=== PATIENT | male | born 1970 | race Caucasian/White ===

== ENCOUNTER → 2017-12-03 08:53 | Outpatient (CLI) | payer OTHER, SELFPAY ==
[2017-12-03 10:20] LABS: Erythrocyte Sedimentation Rate 11 mm/hr (0-15)
[2017-12-03 10:45] LABS: ALB/GLOB Ratio 0.9 RATIO (0.9-2.4); AST(SGOT) 29 U/L (15-37); Alanine Aminotransfer ALT/SGPT 55 U/L (16-61); Albumin, Serum 3.7 g/dL (3.2-5.0); Alkaline Phosphatase 72 U/L (45-117); Anion Gap 11 (5-15); BUN 17 mg/dL (7-18); BUN/Creat Ratio 16.2 RATIO (10-20); Calcium,Total 9.1 mg/dL (8.5-10.1); Chloride 100 mmol/L (98-107); Creatinine, Serum 1.05 mg/dL (0.70-1.30); EST Glomerular Filtration Rate 81 mL/min (>60); Est Glom Filt Rate - Afr Amer 98 mL/min (>60); Globulin 4.3 g/dL (2.2-4.2); Glucose 354 mg/dL (74-106); Potassium 4.1 mmol/L (3.5-5.1); Rheumatoid Factor < 10.0 IU/mL (<15); Sodium Level 136 mmol/L (136-145)
[2017-12-03 11:01] LABS: Hemoglobin A1c 12.8 % (4.2-6.3)
[2017-12-03 11:21] LABS: HIV - WCH Non-Reactive (Nonreactive); Vitamin B12 827 pg/mL (211-911)
[2017-12-07 13:57] LABS: Thyroid Stim Hormone (TSH) 0.73 uIU/mL (0.358-3.74)
[2017-12-07 16:07] LABS: Immunoglobulin A 286 mg/dL (90-386); Immunoglobulin G 1103 mg/dL (700-1600); Immunoglobulin M 163 mg/dL (20-172); RNP Ab <0.2 AI (0.0-0.9); Smith Ab <0.2 AI (0.0-0.9)
[2017-12-08 16:12] LABS: PROEL- A/G Ratio 1.1 (0.7-1.7); PROEL- Albumin 3.9 g/dL (2.9-4.4); PROEL- Alpha-1 Globulin 0.2 g/dL (0.0-0.4); PROEL- Alpha-2 Globulin 0.9 g/dL (0.4-1.0); PROEL- Beta Globulin 1.3 g/dL (0.7-1.3); PROEL- Gamma Globulin 1.4 g/dL (0.4-1.8); PROEL- Globulin, Total 3.7 g/dL (2.2-3.9); PROEL- TOTAL PROTEIN 7.6 g/dL (6.0-8.5)
[2017-12-09 10:43] LABS: Hep C Antibodies <0.1 s/co ratio (0.0-0.9)
[2017-12-09 10:46] LABS: ANTINUCLEAR ANTIBODIES DIRECT Negative (Negative)
== END ==
PROVIDERS: Family Provider Family Medicine; PCP Family Medicine; Visit Provider Family Medicine
DX: E11.40 Type 2 diabetes mellitus with diabetic neuropathy, unspecified (principal); E11.65 Type 2 diabetes mellitus with hyperglycemia; M79.609 Pain in unspecified limb; R20.2 Paresthesia of skin
CPT/HCPCS: 36415; 80053; 82607; 82746; 82784; 83036; 84165; 84443; 85652; 86038; 86235; 86334; 86431; 86703; 86803

== ENCOUNTER → 2018-08-25 09:16 | Outpatient (CLI) | payer OTHER, SELFPAY ==
[2018-08-25 10:03] LABS: Absolute Lymphocyte Count 1.49 X10^3/ul (0.83-4.51); Absolute Neutrophil Count 7.1 X10^3/uL (2.0-7.7); Basophil# 0.04 X10^3/uL; Basophil% 0.4 % (0-1); Eosinophil# 0.28 X10^3/uL; Eosinophils% 2.9 % (0-5); Hematocrit 51.9 % (40-54); Hemoglobin 18.1 g/dl (13.0-16.5); Lymphocyte # 1.49 X10^3/ul (4.0); Lymphocyte % 15.5 % (19-41); Mean Corp Hgb Conc 34.9 g/gl (32-36); Mean Corpuscular Hgb 31.1 pg (27.0-32.0); Mean Corpuscular Volume 89.2 fL (80-94); Mean Platelet Vol. 11.1 fl (6.2-12.0); Monocyte# 0.61 X10^3/uL; Monocyte% 6.3 % (0-10); Neutrophil # 7.13 X10^3/uL (2.7-7.7); Neutrophil % 74.2 % (47-70); Platelet Count 251 K/mm3 (150-450); RBC Distribution Width CV 12.8 % (11.6-14.6); RBC Distribution Width SD 41.8 fl (35.1-43.9); Red Blood Count 5.82 M/mm3 (4.6-6.2); White Blood Count 9.6 K/mm3 (4.4-11.0)
[2018-08-25 10:05] LABS: POSITIVE COUNT NO; POSITIVE DIFFERENTIAL NO; POSITIVE MORPHOLOGY NO
[2018-08-25 10:25] LABS: Vitamin B12 1101 pg/mL (211-911)
[2018-08-25 10:30] LABS: Hemoglobin A1c 10.9 % (4.2-6.3)
[2018-08-25 10:36] LABS: Microalbumin,Random Urine 14.1 mg/L (NO RANGE EST.); Microalbumin:Creatinine Ratio 42.7 mg/g CRE (<30 mg/g CRE)
[2018-08-25 11:11] LABS: ALB/GLOB Ratio 0.9 RATIO (0.9-2.4); AST(SGOT) 15 U/L (15-37); Alanine Aminotransfer ALT/SGPT 33 U/L (16-61); Albumin, Serum 4.1 g/dL (3.2-5.0); Alkaline Phosphatase 90 U/L (45-117); Anion Gap 12 (5-15); BUN 15 mg/dL (7-18); BUN/Creat Ratio 15.2 RATIO (10-20); Calcium,Total 10.2 mg/dL (8.5-10.1); Chloride 99 mmol/L (98-107); Cholesterol 292 mg/dL (200); Creatinine, Serum 0.98 mg/dL (0.70-1.30); EST Glomerular Filtration Rate 87 mL/min (>60); Est Glom Filt Rate - Afr Amer 105 mL/min (>60); Ferritin 183 ng/mL (26-388); Globulin 4.7 g/dL (2.2-4.2); Glucose 329 mg/dL (74-106); High Density Lipoprotein 51 mg/dL; Potassium 4.2 mmol/L (3.5-5.1); Protein, Total 8.8 g/dL (6.4-8.2); Sodium Level 137 mmol/L (136-145); Thyroid Stim Hormone (TSH) 0.72 uIU/mL (0.358-3.74); Triglycerides 343 mg/dL; Very Low Density Lipoprotein 69 mg/dL (5-40)
== END ==
PROVIDERS: Family Provider Family Medicine; PCP Family Medicine; Visit Provider Family Medicine
DX: E11.9 Type 2 diabetes mellitus without complications (principal); R63.4 Abnormal weight loss
CPT/HCPCS: 36415; 80053; 80061; 82043; 82140; 82570; 82607; 82728; 82746; 83036; 84443; 85025

== ENCOUNTER → 2018-09-26 15:29 | Outpatient (CLI) | payer OTHER, SELFPAY ==
[2018-09-26 17:29] LABS: Absolute Lymphocyte Count 2.06 X10^3/ul (0.83-4.51); Absolute Neutrophil Count 7.4 X10^3/uL (2.0-7.7); Basophil# 0.03 X10^3/uL; Basophil% 0.3 % (0-1); Eosinophil# 0.18 X10^3/uL; Eosinophils% 1.7 % (0-5); Hematocrit 47.3 % (40-54); Hemoglobin 16.1 g/dl (13.0-16.5); Lymphocyte # 2.06 X10^3/ul (4.0); Lymphocyte % 19.8 % (19-41); Mean Corpuscular Hgb 31.3 pg (27.0-32.0); Mean Corpuscular Volume 91.8 fL (80-94); Mean Platelet Vol. 10.9 fl (6.2-12.0); Monocyte# 0.61 X10^3/uL; Monocyte% 5.9 % (0-10); Neutrophil # 7.42 X10^3/uL (2.7-7.7); Neutrophil % 71.4 % (47-70); Platelet Count 247 K/mm3 (150-450); Red Blood Count 5.15 M/mm3 (4.6-6.2); White Blood Count 10.4 K/mm3 (4.4-11.0)
[2018-09-26 17:30] LABS: POSITIVE COUNT NO; POSITIVE DIFFERENTIAL NO; POSITIVE MORPHOLOGY NO
[2018-09-26 18:11] LABS: AST(SGOT) 15 U/L (15-37); Alanine Aminotransfer ALT/SGPT 27 U/L (16-61); Albumin, Serum 4.1 g/dL (3.2-5.0); Alkaline Phosphatase 71 U/L (45-117); Anion Gap 10 (5-15); BUN 15 mg/dL (7-18); BUN/Creat Ratio 17.6 RATIO (10-20); Calcium,Total 9.8 mg/dL (8.5-10.1); Chloride 96 mmol/L (98-107); Cholesterol 284 mg/dL (200); Creatinine, Serum 0.85 mg/dL (0.70-1.30); EST Glomerular Filtration Rate 102 mL/min (>60); Est Glom Filt Rate - Afr Amer 124 mL/min (>60); Globulin 4.3 g/dL (2.2-4.2); Glucose 233 mg/dL (74-106); Hemoglobin A1c 9.9 % (4.2-6.3); High Density Lipoprotein 57 mg/dL; Potassium 3.7 mmol/L (3.5-5.1); Protein, Total 8.4 g/dL (6.4-8.2); Sodium Level 134 mmol/L (136-145); Triglycerides 424 mg/dL
== END ==
PROVIDERS: Family Provider Family Medicine; PCP Family Medicine; Referring Provider Family Medicine; Visit Provider Family Medicine
DX: E11.65 Type 2 diabetes mellitus with hyperglycemia (principal); D75.1 Secondary polycythemia
CPT/HCPCS: 36415; 80053; 80061; 83036; 85025

== ENCOUNTER → 2019-11-08 14:22 | Outpatient (CLI) | payer OTHER, SELFPAY ==
--- NOTE | 2019-11-08 14:27 | RAD_ITS ---
STUDY: X-RAY - LEFT SHOULDER REASON FOR EXAM: Male, 49 years old. Fell off a ladder 2 days ago TECHNIQUE: 4 view(s) of the shoulder. COMPARISON: None. FINDINGS: Normal glenohumeral articulation. Normal acromioclavicular joint. Normal acromion. Normal humeral head and visualized proximal humerus. The soft tissue structures are unremarkable. Normal visualized pulmonary apex. RAD/Shoulder min 2 Views IMPRESSION: Normal x-ray examination of the shoulder. Electronically Signed: Jasmeet Marcelo, at 15:30 EDT , Service support ,
--- NOTE | 2019-11-08 14:30 | RAD_ITS ---
STUDY: X-RAY - LEFT SCAPULA REASON FOR EXAM: Male, 49 years old. Fell off a ladder 2 days ago TECHNIQUE: 2 view(s) of the scapula were obtained. COMPARISON: None. FINDINGS: Normal scapula, including the osseous glenoid rim, acromion, scapular neck, spine, coracoid process, and visualized body. Normal glenohumeral articulation. Normal acromioclavicular joint. Normal visualized humeral head. Normal visualized pulmonary apex. RAD/Scapula IMPRESSION: Normal plain film x-ray examination of the scapula. Electronically Signed: Jasmeet Marcelo, at 15:31 EDT , Service support ,
[2019-11-08 18:52] LABS: ALB/GLOB Ratio 0.9 RATIO (0.9-2.4); AST(SGOT) 14 U/L (15-37); Alanine Aminotransfer ALT/SGPT 29 U/L (16-61); Albumin, Serum 4.1 g/dL (3.2-5.0); Alkaline Phosphatase 112 U/L (45-117); Anion Gap 10 (5-15); BUN 9 mg/dL (7-18); BUN/Creat Ratio 9.9 RATIO (10-20); Calcium,Total 9.6 mg/dL (8.5-10.1); Chloride 99 mmol/L (98-107); EST Glomerular Filtration Rate 95 mL/min (>60); Est Glom Filt Rate - Afr Amer 115 mL/min (>60); Globulin 4.5 g/dL (2.2-4.2); Glucose 326 mg/dL (74-106); Potassium 3.4 mmol/L (3.5-5.1); Protein, Total 8.6 g/dL (6.4-8.2); Sodium Level 132 mmol/L (136-145)
== END ==
PROVIDERS: PCP Family Medicine; Referring Provider Family Medicine; Visit Provider Family Medicine
DX: S49.92XA Unspecified injury of left shoulder and upper arm, initial encounter (principal); E11.65 Type 2 diabetes mellitus with hyperglycemia
CPT/HCPCS: 36415; 73010; 73030; 80053

== ENCOUNTER 2020-03-05 12:40 | Outpatient (RCR) | payer OTHER, SELFPAY ==
[2020-02-22 10:12] VITALS: BMI 28.5
--- NOTE | 2020-03-08 10:23 | HP.FCE ---
Floor (Occasional 1-33% of Day): 35# Floor (Frequent 34-66% of Day): 18# Floor (Constant 67-100% of Day): 7# Floor PDL: Light-Medium Knee (Occasional 1-33% of Day): 35# Knee (Frequent 34-66% of Day): 18# Knee (Constant 67-100% of Day): 7# Knee PDL: Light-Medium Waist (Occasional 1-33% of Day): 25# Waist (Frequent 34-66% of Day): 12# Waist (Constant 67-100% of Day): NA Waist PDL: Light Shoulder (Occasional 1-33% of Day): 25# Shoulder (Frequent 34-66% of Day): 12# Shoulder (Constant 67-100% of Day): NA Shoulder PDL: Light Overhead (Occasional 1-33% of Day): 10# Overhead (Frequent 34-66% of Day): NA Overhead (Constant 67-100% of Day): NA Overhead PDL: Sedentary Bending: Occasional Ability (1-33% of day) Comments: low occasional ability Squatting: Occasional Ability (1-33% of day) Kneeling: No Ablility (0% of day) Reaching out: Occasional Ability (1-33% of day) Reaching up: Occasional Ability (1-33% of day) Sitting: Frequent Ability (34-66% of day) Walking: Occasional Ability (1-33% of day) Standing: Occasional Ability (1-33% of day) Comments: low occasional ability Duration Sedentary Sedentary Light Light Light Medium Medium Medium Heavy Very Heavy Heavy Occasional (0-33% of day) Frequent (34-66% of day) Constant (67-100% of day) 10 # Negligible Negligible 15 # 8 # Negligible 20 # 10# Negli. 35 # 18 # 7 # 50 # 25 # 10 # 75 # 100 # >100 # 38 # 50 # >50 # 15 # 20 # >20 # Height: 1.73 m Weight:: 90.718 kg Hand Dominance: Left Medical History Including Restrictions: Pt states he was in good health until he had a fall ten years ago. Pt states he suffered a fall and states he moved his spine forward on his pelvic bone- which required a fussion of the spine of L4-L5 ( pt not sure). Pt states he continued to have back pain and was dx with [facility] syndrome ten years ago as well. Pt states 5 years ago he had a disc herniation at level C6 with spine fussion of C6 and C7. pt went through physical therapy. Pt states he was placed on a lifting restirction 10 years ago at 50# Diagnoses: High blood pressure dx at age 15 controlled with medication. DMII dx in 2002. neropaathy in hands and feet dx in 2018. [facility] syndrom. pt states he is on arthritis mediation perscribed by his family . Symptoms: tingling in feet. cold feet. pain in feet. right leg pain. Pain in right groin. Limited ROM Pain: pain currently 03/21 pt does not take pain medication- states he has been on a number of pain medications but wasn?t helpful. Work History: Pt states the last time he worked was September of 2018. States he worked at [employer] in [facility], [place]. 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 Pt states he was employed three years. Pt states he was required to load/ unload car parts, detailing cars, assembling and disassembling vehicles. pt states he worked 12-hour days 5 days a week. Pt states he worked at a [employer] from [phone] Behavioral: Pt was cooperative during the assessment. ADLS: Pt states he lives in a two-story home with two entry steps. states he lives with his and son (15). pt states master bedroom upstairs a full flight of 12 stairs. Pt states he sleeps on the couch. Bathroom is on main floor with tub shower combination. pt states he is ind. with bathing. States with dressing he is modified independence. due to limited UB ROM. Pt states he drives ind. pt states he does the cooking clean and laundry. Laundry is first floor set-up. Pt states son does the yard work. pt states both him and his do the grocery shopping. Physical Examination: resting heart rate 89. pt demo with a rolled shoulder forward head posture ROM: pt demo with left shoulder flex at 80* all other left UE ROM is WNL. (with repetitive reaching up pt demonstrated a increase in left UE ROM to 140*). right UE ROM is WFL. forward lumbar flexion limited to 45*. pt demo with compensatory techniques of back extension. Extension of spine limited (pt pull neck into extension, and bends knees demo little lumbar extension) Strength: Pt demo left UE shoulder at 4-/5 in his limited shoulder ROM. left UE biceps/triceps 4+/5. right UE grossly throughout 4+/5. LE hip flexors tested MMT at 4/5. bilateral quad and hamstring MMT 4+/5 Right [employer] Strength Average: 88.33 Right [employer] Strength Percentile: 10% Left [employer] Strength Average: 60.00 Left [employer] Strength Percentile: 1.4% Right Lateral Pinch Average: 20.66 Right Lateral Pinch Percentile: 50% Left Lateral Pinch Average: 14.00 Left Lateral Pinch Percentile: 10% Right Tripod Pinch Average: 21.33 Right Tripod Pinch Percentile: 75% Left Tripod Pinch Average: 20.00 Left Tripod Pinch Percentile: 75% Sensation: [place] [employer] sensory testing. right hand 2.83. left hand 2.83 all but left LF at 3.22. sensation is WNL Fine Motor: denies issues Balance: no loss of balance noted at this time Bending: pt demo the ability to bend forward in limited forward flexion three times with use of external upport, ten times and heart rate 125 and ten tiems fast heart rate 127 pt can bend forward on low occasional ability Squatting: pt demo the ability to squat with limited MENDEZ and reports pain up his spine and right leg- reports leg pain at 9/10 pt complted 10 times with heart rate at 113. pt unable to cont with ten times fast due to pain 9//10 - pt can squat on a occasional ability Kneeling: pt demo the ability to kneel one time with external support - pt states pain in back and leg. pt has not ability to kneel Reaching out/up: pt states with reaching out three times he has pain going down center of his back and shoulders, ten times with heart rate at 106 following, ten times rapidly with heart rate at 99 pt reported pain 9.5/10 pt can reach forward on an occasional ability. pt demo the ability to reach up three times and ten times and then times rapidly with heart rate at 110 pt demo increase in left shoulder flex with this task at 145* equal to right (but still limited reaching up ROM from norms at 160*). pt can reach up/out on occasional ability Walking: Pt demo the ability to ambulate 468 feet total distance while in the clinic. pt amb with slow antalgic gait. pt report pain 9.5/10. pt can ambulate on occasional ability Standing: pt demo the ability to stand for 3 min shifting body weight, pt can stand on low occasional ability Sitting: pt demo the ability to sit for 40 min with no apparent or expressed discomfort pt can sit on a frequent ability. Climbing Stairs: pt demo the ability to ascend/descend ten stairs at a reciprocal step pattern with use of rail. Floor Lift: PT demo the ability to lift 35# maximally from this level. Knee Lift: PT demo the ability to lift 35# maximally from this level. Waist Lift: PT demo the ability to lift 25# maximally from this level. Shoulder Lift: PT demo the ability to lift 25# maximally from this level. Overhead Lift: PT demo the ability to lift 10# maximally from this level. Carrying: pt demo the ability to carry 25# for 60 feet with antalgic gait pattern Comments: heart rate following lift and carry 112. pain limiting factor with requested tasks
--- NOTE | 2020-04-18 12:48 | HP.OT.NRP ---
MARIEL CASTAÑEDA was seen in my office for initial evaluation on . The following Plan of Care was established for this patient: This patient was last seen in our office 03/05/20. Pertinent comments regarding their Occupational therapy will appear below: pt seen for FCE only At this point I will be discontinuing this patient from occupational therapy. I would be happy to see this patient again in the future if found appropriate by the physician. Thank you! Narda Sebastian, OTR/L, CHT
== END 2020-03-05 19:00 | disposition home or self-care (01) ==
LOC: OT 12:40
PROVIDERS: PCP Family Medicine; Referring Provider Family Medicine; Visit Provider Family Medicine
DX: M48.10 Ankylosing hyperostosis [Forestier], site unspecified (principal); M54.9 Dorsalgia, unspecified; G89.29 Other chronic pain; M79.604 Pain in right leg
CPT/HCPCS: 97750

== ENCOUNTER → 2020-12-17 10:04 | Outpatient (CLI) | payer OTHER, SELFPAY ==
[2020-10-25 09:26] VITALS: BMI 33.2
[2020-12-17 12:32] LABS: ALB/GLOB Ratio 0.9 RATIO (0.9-2.4); AST(SGOT) 15 U/L (15-37); Alanine Aminotransfer ALT/SGPT 23 U/L (16-61); Albumin, Serum 3.6 g/dL (3.2-5.0); Alkaline Phosphatase 76 U/L (45-117); Anion Gap 9 (5-15); BUN 9 mg/dL (7-18); BUN/Creat Ratio 9.6 RATIO (10-20); Calcium,Total 9.3 mg/dL (8.5-10.1); Chloride 102 mmol/L (98-107); Creatinine, Serum 0.94 mg/dL (0.70-1.30); EST Glomerular Filtration Rate 91 mL/min (>60); Est Glom Filt Rate - Afr Amer 110 mL/min (>60); Globulin 4.1 g/dL (2.2-4.2); Glucose 263 mg/dL (74-106); Potassium 4.1 mmol/L (3.5-5.1); Protein, Total 7.7 g/dL (6.4-8.2); Sodium Level 135 mmol/L (136-145); Thyroid Stim Hormone (TSH) 1.48 uIU/mL (0.358-3.74)
[2020-12-17 12:33] LABS: Hemoglobin A1c 8.8 % (3.8-5.6)
[2020-12-17 12:39] LABS: Microalbumin,Random Urine 23.3 mg/L (NO RANGE EST.); Microalbumin:Creatinine Ratio 20.4 mg/g CRE (<30 mg/g CRE)
== END ==
PROVIDERS: PCP Family Medicine; Visit Provider Family Medicine
DX: E11.65 Type 2 diabetes mellitus with hyperglycemia (principal); I10 Essential (primary) hypertension
CPT/HCPCS: 36415; 80053; 82043; 82570; 83036; 84443

== ENCOUNTER 2021-01-29 19:22 | Emergency (ER) | payer OTHER, SELFPAY ==
[2020-10-25 09:26] VITALS: BMI 33.2
[2021-01-29 19:22] VITALS: BP 148/96; PULSE 81; RESP 16; TEMP 36.7; O2SAT 98; BMI 31.5
[2021-01-29 20:29] LABS: Absolute Lymphocyte Count 2.12 X10^3/uL (0.83-4.51); Absolute Neutrophil Count 6.7 X10^3/uL (2.0-7.7); Basophil# 0.03 X10^3/uL; Basophil% 0.3 % (0-1); Eosinophil# 0.11 X10^3/uL; Eosinophils% 1.1 % (0-5); Hematocrit 49.3 % (40-54); Hemoglobin 17.1 g/dL (13.0-16.5); Lymphocyte # 2.12 X10^3/ul (0.83-4.51); Lymphocyte % 21.9 % (19-41); Mean Corp Hgb Conc 34.7 g/dL (32-36); Mean Corpuscular Hgb 30.5 pg (27.0-32.0); Mean Corpuscular Volume 87.9 fL (80-94); Mean Platelet Vol. 10.6 fl (6.2-12.0); Monocyte# 0.68 X10^3/uL; NRBC Flagged by Analyzer 0 % (0-5); Neutrophil # 6.68 X10^3/uL (2.7-7.7); Neutrophil % 69.1 % (47-70); Platelet Count 302 K/mm3 (150-450); RBC Distribution Width CV 12.7 % (11.6-14.6); Red Blood Count 5.61 M/mm3 (4.6-6.2); White Blood Count 9.7 K/mm3 (4.4-11.0)
[2021-01-29 20:41] LABS: Anion Gap 8 (5-15); BUN 9 mg/dL (7-18); Calcium,Total 9.3 mg/dL (8.5-10.1); Chloride 105 mmol/L (98-107); Creatinine, Serum 1.13 mg/dL (0.70-1.30); EST Glomerular Filtration Rate 73 mL/min (>60); Est Glom Filt Rate - Afr Amer 89 mL/min (>60); Estimated Creatinine Clearance 85.15 ml/min; Glucose 317 mg/dL (74-106); Potassium 3.4 mmol/L (3.5-5.1); Sodium Level 135 mmol/L (136-145)
[2021-01-29 21:04] LABS: Red Blood Cells-Urine 0 SEEN /hpf (0-5); Squamous Epithelial Cells - UA 0 SEEN /hpf (0-5); White Blood Cells 0 SEEN /hpf (0-5)
[2021-01-29 21:08] LABS: Color, Urine Yellow (Yellow); Glucose, Dipstick 1000 mg/dl (Normal); Ketone-Dipstick 5 mg/dl (Negative); Leukocyte Esterase-Dipstick Negative /ul (Negative); Nitrite-Dipstick Negative (Negative); Occult Blood-Urine Negative /ul (Negative); Protein-Dipstick Negative (Negative); Specific Gravity, Urine 1.015 (1.002-1.030); Urine Bilirubin Dipstick Negative (Negative); Urine Clarity Clear (Clear); Urine Urobilinogen 4 mg/dl (Normal)
[2021-01-29 21:23] LABS: Bacteria RARE /hpf (None Seen); Mucous, Urine RARE /hpf (<or=2+)
--- NOTE | 2021-01-29 21:54 | CT_ITS ---
STUDY: CT ABDOMEN AND PELVIS WITH CONTRAST REASON FOR EXAM: Male, 50 years old. Right lower quadrant and groin pain for 3 days. RADIATION DOSAGE (If Supplied By Facility): CTDIvol = ( 20.47 ) mGy, DLP = ( 1719.55 ) mGycm TECHNIQUE: Transaxial images were obtained from the dome of the diaphragm to the symphysis pubis without oral contrast. IV 100mL Isovue-370 was administered. Sagittal and coronal images were reconstructed. Individualized dose optimization techniques were used for this CT. COMPARISON: Comparison is made with prior study dated 07/21/2012. FINDINGS: The visualized lung bases are unremarkable. The visualized portions of the heart are within normal limits. There is decreased attenuation of the liver consistent with steatosis. Normal gallbladder and extrahepatic biliary system. Normal spleen. Normal pancreas. Normal bilateral adrenal glands. Normal right kidney. Normal left kidney. Incidental note is made of the left retroaortic renal vein. Normal visualized stomach. Normal small intestine. There are multiple colonic diverticula consistent with diverticulosis. The appendix is visualized and appears normal. Normal abdominal aorta. Normal inferior vena cava. Normal retroperitoneum. Mild degree of diffuse bladder wall thickening. There are prostatic calcifications. There is a left-sided inguinal hernia containing adipose tissue. Prior interpedicular screw fixation at the L4-L5 level. CT/Abdomen/Pelvis W IV Cont ONLY IMPRESSION: Mild degree of bladder wall thickening. Fatty infiltration of the liver. Sigmoid diverticulosis. Electronically Signed: Jasmeet Marcelo MD at 22:33 EDT , Service support ,
--- NOTE | 2021-01-29 21:57 | ED.VIS.GI ---
HPI HPI - GI History of Present Illness Chief Complaint: Abd Pain Informant: patient and spouse/S.O. Narrative Narrative: Patient presents with abdominal pain. It started slightly 3 days ago. It was in the right lower quadrant. It stayed in that area. He states he does not think it has gotten any worse but is just not better. His wanted to come in because she is concerned. She states he has a very high pain tolerance. He has had some nausea and vomiting. He is able to eat small amounts but it worsens the symptoms. He also has some slight watery diarrhea. No blood in the stool or emesis. No fevers. No history of kidney stones. Pain was not sudden onset. He has no abdominal surgery. Only surgeries back surgery. He is diabetic. Nothing really makes his symptoms better. They are a little worse with eating. [facility] Medical History (Updated 01/29/21 @ 23:[address] Phuc Stacy MD) Arthritis Diabetes mellitus Glaucoma H/O emotional problems HTN (hypertension) Neuropathy Home Medications duloxetine 30 mg capsule,delayed release sprinkle 30 mg PO BID 02/22/20 [History Last Taken Unknown] metformin 1,000 mg tablet 1,000 mg PO BID 02/22/20 [History Last Taken Unknown] pioglitazone 30 mg tablet 30 mg PO DAILY 02/22/20 [History Last Taken Unknown] quetiapine 300 mg tablet 300 mg PO DAILY 08/01/20 [History Last Taken Unknown] insulin lispro 100 unit/mL subcutaneous pen See Rx Instructions SC TID #63 ml MDD 70 units 08/05/20 [Rx Last Taken Unknown] pen needle, diabetic 32 gauge x 5/32 #150 ea 09/23/20 [Rx Last Taken Unknown] valsartan 320 mg tablet 320 mg PO DAILY tablet 10/25/20 [History Last Taken Unknown] flash glucose sensor #2 ea 11/05/20 [Rx Last Taken Unknown] dicyclomine 20 mg PO TID PRN #12 tab 01/29/21 [Rx Last Taken Unknown] hydromorphone 4 mg PO Q6H PRN 01/29/21 [History Last Taken Unknown] insulin detemir U-100 [Levemir FlexTouch U-100 Insuln] 70 unit SC BID 01/29/21 [History Last Taken Unknown] nebivolol [Bystolic] 10 mg PO DAILY 01/29/21 [History Last Taken Unknown] ondansetron HCl [Zofran] 4 mg PO Q8H PRN #10 tab 01/29/21 [Rx Last Taken Unknown] Allergy/AdvReac Type Severity Reaction Status Date / Time No Known Allergies Allergy Verified 01/29/21 19:22 Surgical History H/O spinal fusion Social History Smoking Status: Never smoker alcohol intake: current substance use type: does not use what type of physical activity do you participate in: walking and bicycling ROS ROS ED Constitutional Constitutional ED: Denies chills or fever(s) ENT ENT ED: Denies sore throat Cardiovascular Cardiovascular: Denies chest pain or palpitations Respiratory/Chest Respiratory/Chest: Denies cough, dyspnea or sputum Gastrointestinal Gastrointestinal: Reports abdominal pain, diarrhea, nausea and vomiting; Denies constipation or melena Genitourinary Genitourinary ED: Denies dysuria or hematuria Musculoskeletal Musculoskeletal: Denies back pain Integumentary Denies rash Neurologic Neurologic: Denies headache(s) or weakness Psychiatric Psychiatric: Denies anxiety or depression Endocrine Endocrinology: Denies polydipsia or polyuria Hematologic/Lymphatic Hematologic/Lymphatic: Denies easy bleeding or easy bruising Allergic/Immunologic Allergic/Immunologic ED: Denies urticaria EXAM Physical Exam Const Vital Signs: 01/29/21 19:22 Temperature 98.0 F Temperature Source Temporal Pulse Rate 81 Respiratory Rate 16 Blood Pressure 148/96 H Blood Pressure Mean 113 Pulse Ox 98 Oxygen Delivery Method Room Air Positive well nourished and well developed General Appearance ED: well developed and NAD HEENT Reports dry mucous membranes atraumatic Mouth ED: Yes dry mucous membranes Mouth: dry mucous membranes Eyes PERRL General Eye ED: Negative for pale conjunctiva or scleral icterus Neck supple Resp normal respiratory effort and clear to auscultation bilaterally Cardio regular rate and regular rhythm GI non-distended and no masses GI Narrative: Patient does have some very mild right lower quadrant tenderness but no rebound or guarding. No notable bone tenderness. Nonsurgical abdomen. Auscultation: normoactive bowel sounds Palpation: soft and tender Back/Spine no CVA tenderness Extremity full ROM Neuro Sensorium / Orientation: alert and oriented to person Psych mental status grossly normal Skin Lesions: no lesions Rashes: no rashes MDM MDM MDM Narrative Medical decision making narrative: Patient is feeling better with treatment. CBC shows mild increase hemoglobin that might be some hemoconcentration from dehydration. White count is normal. Electrolytes are overall good other than high glucose. Urinalysis shows some glucose but no sign of infection. CT scan shows some mild nonspecific thickening of the bladder wall but no sign of appendicitis or diverticulitis although there are diverticuli. Patient feels better. He wants to go home. I will get him home on some Bentyl and Zofran. We had discussions and reasons to return. Lab Data Attestation: I reviewed the patient's lab results. Labs: Laboratory Results - last 24 hr 01/29/21 01/29/21 01/29/21 20:20 20:20 21:00 WBC 9.7 RBC 5.61 Hgb 17.1 H Hct 49.3 MCV 87.9 MCH 30.5 MCHC 34.7 RDW Std Deviation 41.0 RDW Coeff of [place] 12.7 Plt Count 302 MPV 10.6 Immature Gran % (Auto) 0.600 Neut % (Auto) 69.1 Lymph % (Auto) 21.9 [place] % (Auto) 7.0 Eos % (Auto) 1.1 Baso % (Auto) 0.3 Absolute Neuts (auto) 6.7 Absolute Lymphs (auto) 2.12 Nucleated RBC % 0 Sodium 135 L Potassium 3.4 L Chloride 105 Carbon Dioxide 22.0 Anion Gap 8 BUN 9 Creatinine 1.13 Estim Creat Clear Calc 85.15 Est GFR (MDRD) Af Amer 89 Est GFR (MDRD) Non-Af 73 BUN/Creatinine Ratio 8.0 L Glucose 317 H Calcium 9.3 Urine Color Yellow Urine Clarity Clear Urine pH 6.0 Ur Specific [place] 1.015 Urine Protein Negative Urine Glucose (UA) 1000 H Urine Ketones 5 H Urine Occult Blood Negative Urine Nitrite Negative Urine Bilirubin Negative Urine Urobilinogen 4 H Ur Leukocyte Esterase Negative Urine RBC 0 SEEN Urine WBC 0 SEEN Ur Squamous Epith Cells 0 SEEN Urine Bacteria RARE Urine Mucus RARE Radiography Diagnostic Testing: Radiology Impression Abdomen/Pelvis CT 01/29/21 21:54 IMPRESSION: Mild degree of bladder wall thickening. Fatty infiltration of the liver. Sigmoid diverticulosis. Electronically Signed: Jasmeet Marcelo MD at 22:33 EDT , Service support , Discharge Plan Triage Chief Complaint: Abd Pain ED Provider: Phuc Stacy Dx/Rx/DC Orders Clinical Impression: Abdominal pain, Nausea vomiting and diarrhea Instructions: Abdominal Pain Prescriptions: New ondansetron HCl [Zofran] 4 mg tablet 4 mg PO Q8H PRN (Reason: nausea and vomiting) Qty: 10 RF: 0 dicyclomine 20 mg tablet 20 mg PO TID PRN (Reason: cramp) Qty: 12 RF: 0 No Action duloxetine 30 mg capsule, delayed rel sprinkle 30 mg PO BID RF: 0 metformin 1,000 mg tablet 1,000 mg PO BID RF: 0 pioglitazone 30 mg tablet 30 mg PO DAILY RF: 0 quetiapine [Seroquel] 300 mg tablet 300 mg PO DAILY RF: 0 valsartan 320 mg tablet 320 mg PO DAILY RF: 0 hydromorphone 4 mg Tablet 4 mg PO Q6H PRN (Reason: Pain) RF: 0 Bystolic 10 mg Tablet 10 mg PO DAILY RF: 0 Levemir FlexTouch U-100 Insuln 100 unit/mL (3 mL) insulin pen 70 unit SC BID RF: 0 insulin lispro [Humalog KwikPen Insulin] 100 unit/mL insulin pen See Rx Instructions SC TID MDD 70 units Qty: 63 RF: 1 (DME) pen needle, diabetic [BD Ultra-Fine Margo Pen Needle] 32 gauge x 5/32 needle See Rx Instructions .ROUTE .MEDSUPPLY Qty: 150 RF: 6 (DME) FreeStyle [place] 14 Day Sensor Kit See Rx Instructions .ROUTE .MEDSUPPLY Qty: 2 RF: 6 Primary Care Provider: Matti Alvarez Referrals: Matti Alvarez MD [Primary Care Provider] - 3-5 Days if not improving Disposition Disposition: Home, Self Care
[2021-01-29] MEDS: Ondansetron 4 MG/2 ML Vial IV (22:07)
[2021-01-29] MEDS: 0.9% Normal Saline 1,000 ML 1000 ML IV (22:07)
[2021-01-29 23:17] VITALS: PULSE 88; RESP 16; O2SAT 98
== END 2021-01-29 23:42 | disposition home or self-care (01) ==
PROVIDERS: Emergency Provider Emergency Medicine; PCP Family Medicine
DX: R10.31 Right lower quadrant pain (principal); R11.2 Nausea with vomiting, unspecified; R19.7 Diarrhea, unspecified; I10 Essential (primary) hypertension; E11.40 Type 2 diabetes mellitus with diabetic neuropathy, unspecified; K57.30 Diverticulosis of large intestine without perforation or abscess without bleeding; H40.9 Unspecified glaucoma; M19.90 Unspecified osteoarthritis, unspecified site; Z79.4 Long term (current) use of insulin; Z79.899 Other long term (current) drug therapy
CPT/HCPCS: 74177; 80048; 81001; 85025; 96361; 96374; 99283; J7030; Q9967; A4216; J2405

== ENCOUNTER → 2021-06-17 10:42 | Outpatient (CLI) | payer OTHER, SELFPAY ==
[2021-06-17 12:42] LABS: Hematocrit 44.4 % (40-54); Hemoglobin 15.4 g/dL (13.0-16.5); Mean Corp Hgb Conc 34.7 g/dL (32-36); Mean Corpuscular Hgb 30.9 pg (27.0-32.0); Mean Corpuscular Volume 89.2 fL (80-94); Mean Platelet Vol. 10.8 fl (6.2-12.0); Platelet Count 252 K/mm3 (150-450); RBC Distribution Width CV 12.2 % (11.6-14.6); RBC Distribution Width SD 39.5 fl (35.1-43.9); Red Blood Count 4.98 M/mm3 (4.6-6.2); White Blood Count 6.6 K/mm3 (4.4-11.0)
[2021-06-17 13:25] LABS: ALB/GLOB Ratio 0.9 RATIO (0.9-2.4); AST(SGOT) 17 U/L (15-37); Alanine Aminotransfer ALT/SGPT 27 U/L (16-61); Albumin, Serum 3.5 g/dL (3.2-5.0); Alkaline Phosphatase 74 U/L (45-117); Anion Gap 10 (5-15); BUN 11 mg/dL (7-18); BUN/Creat Ratio 13.2 RATIO (10-20); Calcium,Total 9.2 mg/dL (8.5-10.1); Chloride 102 mmol/L (98-107); Creatinine, Serum 0.83 mg/dL (0.70-1.30); EST Glomerular Filtration Rate 104 mL/min (>60); Est Glom Filt Rate - Afr Amer 126 mL/min (>60); Globulin 3.9 g/dL (2.2-4.2); Glucose 264 mg/dL (74-106); Potassium 4.8 mmol/L (3.5-5.1); Protein, Total 7.4 g/dL (6.4-8.2); Sodium Level 137 mmol/L (136-145)
== END ==
PROVIDERS: PCP Family Medicine; Referring Provider Family Medicine; Visit Provider Family Medicine
DX: F51.9 Sleep disorder not due to a substance or known physiological condition, unspecified (principal); E11.40 Type 2 diabetes mellitus with diabetic neuropathy, unspecified
CPT/HCPCS: 36415; 80053; 85027

== ENCOUNTER → 2021-12-18 | Outpatient (CLI) | payer OTHER, SELFPAY ==
[2021-12-18 10:20] LABS: Absolute Lymphocyte Count 1.41 X10^3/uL (0.83-4.51); Absolute Neutrophil Count 2.9 X10^3/uL (2.0-7.7); Basophil# 0.03 X10^3/uL; Basophil% 0.6 % (0-1); Eosinophils% 3.7 % (0-5); Hematocrit 43.4 % (40-54); Hemoglobin 14.5 g/dL (13.0-16.5); Lymphocyte # 1.41 X10^3/ul (0.83-4.51); Lymphocyte % 26.2 % (19-41); Mean Corp Hgb Conc 33.4 g/dL (32-36); Mean Corpuscular Hgb 31.5 pg (27.0-32.0); Mean Corpuscular Volume 94.3 fL (80-94); Mean Platelet Vol. 10.7 fl (6.2-12.0); Monocyte# 0.86 X10^3/uL; NRBC Flagged by Analyzer 0 % (0-5); Neutrophil # 2.85 X10^3/uL (2.7-7.7); Neutrophil % 52.9 % (47-70); Platelet Count 238 K/mm3 (150-450); RBC Distribution Width CV 12.9 % (11.6-14.6); RBC Distribution Width SD 44.1 fl (35.1-43.9); White Blood Count 5.4 K/mm3 (4.4-11.0)
[2021-12-18 10:43] LABS: Hemoglobin A1c 7.2 % (3.8-5.6)
[2021-12-18 11:02] LABS: ALB/GLOB Ratio 0.8 RATIO (0.9-2.4); AST(SGOT) 13 U/L (15-37); Alanine Aminotransfer ALT/SGPT 22 U/L (16-61); Albumin, Serum 3.3 g/dL (3.2-5.0); Alkaline Phosphatase 58 U/L (45-117); Anion Gap 3 (5-15); BUN 6 mg/dL (7-18); BUN/Creat Ratio 6.1 RATIO (10-20); Chloride 104 mmol/L (98-107); Creatinine, Serum 0.98 mg/dL (0.70-1.30); EST Glomerular Filtration Rate 86 mL/min (>60); Est Glom Filt Rate - Afr Amer 104 mL/min (>60); Globulin 4.2 g/dL (2.2-4.2); Glucose 160 mg/dL (74-106); Potassium 4.2 mmol/L (3.5-5.1); Protein, Total 7.5 g/dL (6.4-8.2); Sodium Level 137 mmol/L (136-145); Vitamin D,25 Hydroxy 26.9 ng/mL
== END | disposition home or self-care (01) ==
PROVIDERS: PCP Family Medicine; Referring Provider Family Medicine; Visit Provider Family Medicine
DX: E11.22 Type 2 diabetes mellitus with diabetic chronic kidney disease (principal); E11.319 Type 2 diabetes mellitus with unspecified diabetic retinopathy without macular edema; G89.4 Chronic pain syndrome; N18.1 Chronic kidney disease, stage 1
CPT/HCPCS: 36415; 80053; 82306; 83036; 85025

== ENCOUNTER → 2022-03-25 | Outpatient (CLI) | payer OTHER, SELFPAY ==
[2022-03-25 10:26] LABS: Microalbumin,Random Urine 11.5 mg/L (NO RANGE EST.); Microalbumin:Creatinine Ratio 7.1 mg/g CRE (<30 mg/g CRE)
[2022-03-25 10:45] LABS: Cholesterol 202 mg/dL (200); High Density Lipoprotein 39 mg/dL; Thyroid Stim Hormone (TSH) 1.52 uIU/mL (0.358-3.74); Triglycerides 272 mg/dL; Very Low Density Lipoprotein 54 mg/dL (5-40)
== END | disposition home or self-care (01) ==
LOC: LAB 08:56
PROVIDERS: PCP Family Medicine; Referring Provider Nurse Practitioner Family; Visit Provider Nurse Practitioner Family
DX: I10 Essential (primary) hypertension (principal); E11.9 Type 2 diabetes mellitus without complications; E66.9 Obesity, unspecified
CPT/HCPCS: 36415; 80061; 82043; 82570; 84443

== ENCOUNTER 2022-03-30 11:40 | Day surgery (SDC) | payer OTHER, SELFPAY ==
--- NOTE | 2022-03-23 11:32 | NURSING ---
Pt instructed to notify Dr Chaves of current eyelid infection.
[2022-03-30] VITALS (9 sets, daily range): BP systolic 105–153; BP diastolic 64–94; PULSE 76–84; RESP 16–18; TEMP 36.4–36.6; O2SAT 95–99; BMI 37.3
[2022-03-30] MEDS: Cefazolin 2 GM in 0.9% Normal Saline 100 ML IV (09:48)
[2022-03-30] MEDS: Lactated Ringers 1,000 ML 15 ML IV (12:13)
[2022-03-30 12:36] LABS: Bedside Glucose 109 mg/dL (74-106)
--- NOTE | 2022-03-30 13:50 | RAD_ITS ---
PROCEDURE: Spinal cord stimulator lead. DATE OF EXAMINATION: 03/30/2022 INDICATION: Male, 52 years old presenting for spinal cord stimulator leads insertion. PHYSICIAN: Lakhwinder Tran MD FLUOROSCOPY TIME (if supplied): 268.8 seconds RADIATION DOSAGE (If Supplied By Facility): CTDIvol = ( 249.6 ) mGy PROCEDURE/TECHNIQUE: 7 intraoperative images were obtained demonstrating placement of spinal cord simulator leads in the lower thoracic spine, no radiologist was present for the procedure. Please refer to operative report for details. RAD/Lumbar Spine 2 or 3 Views IMPRESSION: Please refer to operative report for details. Electronically Signed: Alex Tran MD at 16:24 EDT ,
[2022-03-30] MEDS: Lidocaine 2% (20 ml mdv) 20 ML Vial (14:30)
[2022-03-30] MEDS: Bacitracin 500 UNITS/GM PACKET (14:58)
[2022-03-30] MEDS: Lactated Ringers 500 ML 999 ML IV (15:39)
--- NOTE | 2022-03-30 16:31 | SUR.PHASEI ---
PATIENT DENIES ANY HEADACHE, NAUSEA, OR OTHER C/O POST OP. MEDIAL DRESSING w/ SMALL AMOUNT SEROSANGUINOUS DRAINAGE WHICH IS MARKED.
--- NOTE | 2022-03-30 17:24 | OP.PCM_ITS ---
Report of Operation Date of Procedure: 03/30/22 Description of Surgical Findings:: Description of Surgical Findings:: Pre-Operative Diagnosis:?Lumbosacral radiculopathy, lumbosacral degenerative disc disease, lumbosacral spinal stenosis Post-Operative Diagnosis:?Lumbosacral radiculopathy, lumbosacral degenerative disc disease, lumbosacral spinal stenosis Surgery/Procedure Performed::?1.? Spinal cord stimulator thoracolumbar leads placement x2 #2 spinal cord stimulator Medtronic intellus generator placement #3 spinal cord stimulator generator pocket creation at the right gluteal region #4 spinal cord stimulator simple programming, 5-intraoperative fluoroscopic interpretation Description of Surgical Findings:: MAC COMPLICATIONS: None BLOOD LOSS: Minimal Implanted device: Spinal cord stimulator lead [id number] lot number [id number], lead #2? [id number] lot number [id number] Medtronic spinal cord stimulator generator intellus serial number [id number] PROCEDURE IN DETAIL: History and physical today was reviewed. Risks and benefits of procedure explained. The patient understood, agreed to procedure, informed consent was obtained. IV inserted per routine protocol. The patient was taken to the operati ng room, placed in the prone position with a pillow positioned underneath the abdomen. A 2 g of Ancef IV piggyback was infused per anesthesia. The lower back and right gluteal area was prepped and draped in a sterile fashion using iodine x3 Ioban was placed.? The C-arm was brought in position for AP view at the L2-3 vertebral bodies under direct visualization fluoroscopy on a true AP view the L2-3 interlaminar space was identified skin and subcutaneous tissue and size approximately 10 cc of a mix of 2% lidocaine and 0.25% Marcaine using a 25-gauge regular needle followed by a 25-gauge 3-1/2 inch spinal needle towards the interlaminar space at L2-3, the skin and subcutaneous tissue were then anesthetized and using an 11-gauge blade was then taken down to the skin and subcutaneous tissue using a 14-gauge 3-1/2 inch Touhy needle provided by the [employer] kit the needle was passed through the skin towards the interlaminar space at L2-3 and a paramedian approach the needle was then advanced under direct visualization fluoroscopy towards the interlaminar space at L2-3 [id number] technique was then carried to air towards the interlaminar space at L2-3 once the tip of the needle was in the epidural space and loss of resistance was encountered to air and after confirmation of AP as well as oblique view of the spinal cord stimulator lead was then advanced under direct visualization fluoroscopy to be at the tip of the lead at T8 and the bottom of the lead around mid T10 after confirmation of AP as well as lateral view to confirm correct placement of the lead in the posterior compartment of the epidural space the previous procedure was then repeated to a level above at L1-2 interlaminar space the second lead was then inserted under direct visualization with fluoroscopy to be at the mid T8 and mid T10 area the leads were were then connected to the external neurostimulator and patient was then awakened to confirm satisfactory coverage of the painful area once satisfactory coverage was then achieved the stylette of each needle was then removed and the skin and subcutaneous tissue on to the left of the paramedian needles was then taken anesthetized with a total of 10 cc of the previous mixture of 0.25% Marcaine and 2% lidocaine using a 25-gauge regular needle the incision was then taken down through the skin and subcutaneous tissue towards the fascia making sure hemostasis was then maintained via cautery, the spinal cord stimulator leads were then passed through the above incision and secured using the biwing and sutured down with a 2-0 silk to the fascia at that level the spinal cord stimulator leads were then tunneled via a tunneler provided by the [employer] kit towards the previously incised spinal cord stimulator battery at the right gluteal region skin and subcutaneous tissue were anesthetized with approximately 10 cc of a mix of 2% lidocaine and 0.25% Marcaine using a 25 gauge regular needle, skin and subcutaneous tissue was then taken down with the 11-gauge blade hemostasis was maintained with Bovie and direct pressure the incision was then taken down to the fascia and the battery was then secured with the 2-0 silk sutures that were the spinal cord stimulator leads the upper lead was then marked the new until spinal cord stimulator battery was then provided Via [employer] kit the battery was then reattached of the spinal cord stimulator make ensure that the top lead is attached to the top position from 0-7 electrodes and the bottom from 8-15 electrodes once impedance was then checked to be in the proper average number the intellus battery was then inserted into the pocket and impedance with when checked again the pocket was then inspected to confirm hemostasis in place, the intellus battery was then secured to the fascia using a 2-0 silk to the upper eyes of the battery confirming an upward writing of the intellus facing posterior,? once complete confirmation the battery was then placed in the position and the the mid paramedian and the gluteal incisions were then closed primarily through 0 Vicryl in an interrupted fashion followed by a 3-0 Vicryl in a running fashion followed by a 4-0 Vicryl to the skin, hemostasis was then maintained during the procedure the skin was then covered with a Steri- Strips and bacitracin patient was then returned into the supine position in a stable condition and returned to recovery in a stable condition patient experienced no signs or symptoms of intrathecal or intravascular injection patient experienced no paresthesia the procedure was completed without any apparent difficulty any complication the patient appeared to tolerate well, motor as well as sensory function was unchanged from prior to the procedure ESTIMATED BLOOD LOSS: Minimal less than 25 mL ASSESSMENT AND PLAN: This is a 52-year-old male with lumbosacral radiculopathy lumbosacral degenerative disc disease lumbosacral spinal stenosis status post 1.? Spinal cord stimulator thoracolumbar leads placement x2 #2 spinal cord stimulator Medtronic intellus generator placement #3 spinal cord stimulator generator pocket creation at the right gluteal region #4 spinal cord stimulator simple programming, 5-intraoperative fluoroscopic interpretation patient will continue her current medications a prescription was provided to the patient? Keflex 500 mg 1 p.o. every 8 hours for 7 days postop instruction were given in writing to the patient and his ? as well as verbally and in writing, patient will follow approximately 1 week for reevaluation.
== END 2022-03-30 16:49 | disposition home or self-care (01) ==
LOC: SDC 11:40 → AC 11:42
PROVIDERS: PCP Family Medicine; Visit Provider Anesthesiology Pain Medicine
PROC: (CPT 63685; principal; 2022-03-30 13:00)
DX: M51.17 Intervertebral disc disorders with radiculopathy, lumbosacral region (principal); E11.42 Type 2 diabetes mellitus with diabetic polyneuropathy; E11.319 Type 2 diabetes mellitus with unspecified diabetic retinopathy without macular edema; Z79.4 Long term (current) use of insulin; M48.07 Spinal stenosis, lumbosacral region; I10 Essential (primary) hypertension; E78.00 Pure hypercholesterolemia, unspecified; E66.9 Obesity, unspecified; Z79.899 Other long term (current) drug therapy; Z96.41 Presence of insulin pump (external) (internal); Z68.37 Body mass index [BMI] 37.0-37.9, adult
CPT/HCPCS: 63685; 63650 ×2; 01992; 72100; 76000; 82962; C1778; C1820; J7120; J2405

== ENCOUNTER → 2022-06-25 | Outpatient (CLI) | payer OTHER, SELFPAY ==
--- NOTE | 2022-06-25 15:12 | RAD_ITS ---
STUDY: X-RAY - PELVIS AND BILATERAL HIPS REASON FOR EXAM: Male, 52 years old. Pain. TECHNIQUE: AP view of the pelvis.? 2 views of the right hip, and 2 views of the left hip were obtained. COMPARISON: None. FINDINGS: There is a non-specific bowel gas pattern. Electronic stimulator in the pelvis with leads projecting superiorly off the image. Posterior fusion of the L5-S1 interspace with laminectomy and bone grafting. Normal bilateral iliac wings, sacroiliac joints and visualized sacrum. Normal bilateral superior and inferior pubic rami. Normal pubic symphysis. Normal bilateral ischial tuberosities. Mild arthrosis of both hips. RAD/Hips B/L min 2 views w/ Pelvis IMPRESSION: Postfusion changes of the lower lumbosacral spine. Mild arthrosis of both hips. Electronically Signed: Steven Aparicio, at 10:26 EST ,
--- NOTE | 2022-06-25 15:13 | RAD_ITS ---
STUDY: X-RAY - RIGHT KNEE REASON FOR EXAM: Male, 52 years old. Pain. TECHNIQUE: 3 view(s) of the knee. COMPARISON: None. FINDINGS: Normal visualized distal femur. Ossification of the tibial tubercle. Normal proximal tibiofibular articulation. Superior and inferior patellar spurs. Mild medial compartmental arthrosis. Normal lateral femorotibial compartment. Normal patellofemoral articulation. Small joint effusion. RAD/Knee 3 Views IMPRESSION: Ossification of the tibial tubercle, superior and inferior patellar spurs and small joint effusion. Mild medial compartmental arthrosis. No acute abnormality, chondrocalcinosis or erosive changes. Electronically Signed: Steven Aparicio, at 10:25 EST ,
--- NOTE | 2022-06-25 15:13 | RAD_ITS ---
STUDY: X-RAY - LEFT KNEE REASON FOR EXAM: Male, 52 years old. Pain. TECHNIQUE: 3 view(s) of the knee. COMPARISON: None. FINDINGS: Normal visualized distal femur. Ossification of the tibial tubercle. Normal proximal tibiofibular articulation. Superior patellar spur. Mild medial compartmental arthrosis. Normal lateral femorotibial compartment. Normal patellofemoral articulation. Small joint effusion. RAD/Knee 3 Views IMPRESSION: Ossification of the tibial tubercle, superior and superior patellar spur and small joint effusion. Mild medial compartmental arthrosis. No acute abnormality, chondrocalcinosis or erosive changes. Electronically Signed: Steven Aparicio, at 10:25 EST ,
== END | disposition home or self-care (01) ==
LOC: MTRAD 15:11
PROVIDERS: PCP Family Medicine; Referring Provider Family Medicine; Visit Provider Family Medicine
DX: M25.552 Pain in left hip (principal); M25.461 Effusion, right knee; M77.9 Enthesopathy, unspecified; M25.462 Effusion, left knee; Z98.1 Arthrodesis status
CPT/HCPCS: 73521; 73562

== ENCOUNTER → 2022-09-24 | Outpatient (CLI) | payer OTHER, SELFPAY ==
[2022-09-24 12:15] LABS: Absolute Lymphocyte Count 1.94 X10^3/uL (0.83-4.51); Basophil# 0.06 X10^3/uL; Basophil% 0.7 % (0-1); Eosinophil# 0.39 X10^3/uL; Eosinophils% 4.8 % (0-5); Hematocrit 46.3 % (40-54); Hemoglobin 15.6 g/dL (13.0-16.5); Lymphocyte # 1.94 X10^3/ul (0.83-4.51); Mean Corp Hgb Conc 33.7 g/dL (32-36); Mean Corpuscular Hgb 31.1 pg (27.0-32.0); Mean Corpuscular Volume 92.2 fL (80-94); Mean Platelet Vol. 10.9 fl (6.2-12.0); Monocyte# 0.68 X10^3/uL; Monocyte% 8.4 % (0-10); NRBC Flagged by Analyzer 0 % (0-5); Neutrophil # 4.97 X10^3/uL (2.7-7.7); Neutrophil % 61.5 % (47-70); Platelet Count 261 K/mm3 (150-450); RBC Distribution Width SD 43.8 fl (35.1-43.9); Red Blood Count 5.02 M/mm3 (4.6-6.2); White Blood Count 8.1 K/mm3 (4.4-11.0)
[2022-09-24 12:37] LABS: Microalbumin,Random Urine < 5.0 mg/L (NO RANGE EST.)
[2022-09-24 12:49] LABS: PTHIN 34.6 pg/mL (18.4-80.1)
[2022-09-24 12:51] LABS: Vitamin B12 687 pg/mL (211-911)
[2022-09-24 13:01] LABS: ALB/GLOB Ratio 0.8 RATIO (0.9-2.4); AST(SGOT) 50 U/L (15-37); Alanine Aminotransfer ALT/SGPT 55 U/L (16-61); Albumin, Serum 3.7 g/dL (3.2-5.0); Alkaline Phosphatase 62 U/L (45-117); Anion Gap 6 (5-15); BUN 10 mg/dL (7-18); BUN/Creat Ratio 10.4 RATIO (10-20); Calcium,Total 9.5 mg/dL (8.5-10.1); Chloride 106 mmol/L (98-107); Cholesterol 136 mg/dL (200); Creatinine, Serum 0.96 mg/dL (0.70-1.30); EST Glomerular Filtration Rate 88 mL/min (>60); Est Glom Filt Rate - Afr Amer 107 mL/min (>60); Globulin 4.4 g/dL (2.2-4.2); Glucose 187 mg/dL (74-106); High Density Lipoprotein 45 mg/dL; PSA,Total - Annual Screen 0.45 ng/mL (0.00-4.00); Protein, Total 8.1 g/dL (6.4-8.2); Sodium Level 137 mmol/L (136-145); Triglycerides 166 mg/dL; Very Low Density Lipoprotein 33 mg/dL (5-40)
== END | disposition home or self-care (01) ==
LOC: MFPLAB 10:30
PROVIDERS: PCP Family Medicine; Referring Provider Family Medicine; Visit Provider Family Medicine
DX: E11.319 Type 2 diabetes mellitus with unspecified diabetic retinopathy without macular edema (principal); E11.40 Type 2 diabetes mellitus with diabetic neuropathy, unspecified; E11.22 Type 2 diabetes mellitus with diabetic chronic kidney disease; I10 Essential (primary) hypertension; Z12.5 Encounter for screening for malignant neoplasm of prostate; D75.1 Secondary polycythemia
CPT/HCPCS: 36415; 80053; 80061; 82043; 82306; 82570; 82607; 82746; 83970; 84153; 85025; G0103

== ENCOUNTER → 2023-03-26 | Outpatient (CLI) | payer OTHER, SELFPAY ==
[2023-03-26 12:06] LABS: Absolute Lymphocyte Count 1.78 X10^3/uL (0.83-4.51); Absolute Neutrophil Count 3.5 X10^3/uL (2.0-7.7); Basophil# 0.04 X10^3/uL; Basophil% 0.6 % (0-1); Eosinophil# 0.32 X10^3/uL; Hematocrit 48.1 % (40-54); Hemoglobin 15.9 g/dL (13.0-16.5); Lymphocyte # 1.78 X10^3/ul (0.83-4.51); Mean Corp Hgb Conc 33.1 g/dL (32-36); Mean Corpuscular Hgb 30.3 pg (27.0-32.0); Mean Corpuscular Volume 91.8 fL (80-94); Mean Platelet Vol. 10.4 fl (6.2-12.0); Monocyte# 0.65 X10^3/uL; Monocyte% 10.2 % (0-10); NRBC Flagged by Analyzer 0 % (0-5); Neutrophil # 3.52 X10^3/uL (2.7-7.7); Neutrophil % 55.6 % (47-70); Platelet Count 219 K/mm3 (150-450); RBC Distribution Width CV 13.3 % (11.6-14.6); RBC Distribution Width SD 44.9 fl (35.1-43.9); Red Blood Count 5.24 M/mm3 (4.6-6.2); White Blood Count 6.4 K/mm3 (4.4-11.0)
[2023-03-26 12:28] LABS: ALB/GLOB Ratio 0.8 RATIO (0.9-2.4); AST(SGOT) 29 U/L (15-37); Alanine Aminotransfer ALT/SGPT 33 U/L (16-61); Albumin, Serum 3.4 g/dL (3.2-5.0); Alkaline Phosphatase 73 U/L (45-117); Anion Gap 4 (5-15); BUN 8 mg/dL (7-18); BUN/Creat Ratio 9.7 RATIO (10-20); Calcium,Total 8.8 mg/dL (8.5-10.1); Chloride 112 mmol/L (98-107); Creatinine, Serum 0.83 mg/dL (0.70-1.30); EST Glomerular Filtration Rate 104 mL/min (>60); Est Glom Filt Rate - Afr Amer 126 mL/min (>60); Globulin 4.2 g/dL (2.2-4.2); Glucose 75 mg/dL (74-106); Potassium 3.6 mmol/L (3.5-5.1); Protein, Total 7.6 g/dL (6.4-8.2); Sodium Level 141 mmol/L (136-145)
[2023-03-26 12:29] LABS: Amphetamine Urine VISTA NEGATIVE (<1000 ng/mL); Barbiturate Urine VISTA NEGATIVE (< 200 ng/mL); Benzodiazepine Urine VISTA NEGATIVE (< 200 ng/mL); Cocaine Urine VISTA NEGATIVE (< 300 ng/mL); Ecstacy Urine VISTA NEGATIVE (< 500 ng/mL); Methadone Urine VISTA POSITIVE (< 300 ng/mL); PCP Urine VISTA NEGATIVE (< 25 ng/mL); THC Urine VISTA NEGATIVE (< 50 ng/mL); Vista UDS pH Range 4
[2023-03-26 12:53] LABS: Microalbumin,Random Urine 7.6 mg/L (NO RANGE EST.); Microalbumin:Creatinine Ratio 4.8 mg/g CRE (<30 mg/g CRE)
[2023-03-26 13:16] LABS: Hemoglobin A1c 6.3 % (3.8-5.6)
== END | disposition home or self-care (01) ==
LOC: MTLAB 11:14
PROVIDERS: PCP Family Medicine; Referring Provider Family Medicine; Visit Provider Family Medicine
DX: F11.90 Opioid use, unspecified, uncomplicated (principal); I10 Essential (primary) hypertension; D75.1 Secondary polycythemia; M48.10 Ankylosing hyperostosis [Forestier], site unspecified
CPT/HCPCS: 36415; 80053; 80307; 82043; 82570; 83036; 85025; G0480

== ENCOUNTER → 2023-09-23 | Outpatient (CLI) | payer OTHER, SELFPAY ==
[2023-09-23 17:42] LABS: Hematocrit 51.5 % (40-54); Hemoglobin 17.2 g/dL (13.0-16.5); Mean Corp Hgb Conc 33.4 g/dL (32-36); Mean Corpuscular Hgb 30.6 pg (27.0-32.0); Mean Corpuscular Volume 91.5 fL (80-94); Mean Platelet Vol. 11.2 fl (6.2-12.0); Platelet Count 227 K/mm3 (150-450); RBC Distribution Width CV 12.9 % (11.6-14.6); RBC Distribution Width SD 42.9 fl (35.1-43.9); Red Blood Count 5.63 M/mm3 (4.6-6.2); White Blood Count 8.2 K/mm3 (4.4-11.0)
[2023-09-23 18:10] LABS: ALB/GLOB Ratio 0.9 RATIO (0.9-2.4); AST(SGOT) 29 U/L (15-37); Alanine Aminotransfer ALT/SGPT 44 U/L (16-61); Albumin, Serum 3.8 g/dL (3.2-5.0); Alkaline Phosphatase 69 U/L (45-117); Anion Gap 7 (5-15); BUN 9 mg/dL (7-18); BUN/Creat Ratio 10.1 RATIO (10-20); Calcium,Total 9.5 mg/dL (8.5-10.1); Chloride 109 mmol/L (98-107); Creatinine, Serum 0.89 mg/dL (0.70-1.30); EST Glomerular Filtration Rate 95 mL/min (>60); Est Glom Filt Rate - Afr Amer 115 mL/min (>60); Globulin 4.3 g/dL (2.2-4.2); Glucose 132 mg/dL (74-106); Lipase 17 U/L (13-75); Protein, Total 8.1 g/dL (6.4-8.2); Sodium Level 140 mmol/L (136-145)
[2023-09-23 18:13] LABS: Vitamin D,25 Hydroxy 27.1 ng/mL
[2023-09-23 18:21] LABS: Hemoglobin A1c 5.6 % (3.8-5.6)
--- OUTSIDE RECORDS SUMMARY | 2023-09-23 21:38 | XMS RPT_ITS | CCD ---
Author Name Unknown Address [address] [place] [address] Organization [facility] Care Team Providers Care Clinical Operations Specialist Name Role Phone Mariaa Slade Sergio Unavailable SladeIsaura luicatie Hill Unavailable Andi Eisenberg Unavailable Unavailable Isaura Sladecatie Hill Unavailable Mike Farias Unavailable Unavailable Medications Completed/Discontinued Medications Medication Drug Class(es) Dates Sig (Normalized) Sig (Original) dapagliflozin 5 mg oral tablet (2 sources) Sodium-Glucose Cotransporter 2 Inhibitor Start: 7 FARXIGA 5 MG TABS daily DAPAGLIFLOZIN PROPANEDIOL 78653919412 Tamela Bedoya 24 hr diclofenac sodium 100 mg extended release oral tablet (2 sources) Nonsteroidal Anti-inflammatory Drug Start: 7 DICLOFENAC SODIUM ER 100 MG [id number] DICLOFENAC SODIUM 16888610733 Tamela Bedoya ergocalciferol 47874 unt oral capsule (5 sources) Provitamin D2 Compound Start: 7 ERGOCALCIFEROL 76772 UNIT CAPS one capsule twice weekly ERGOCALCIFEROL 25686605544 Andi Eisenberg hydroCHLOROthiazide 12.5 mg / valsartan 160 mg oral tablet (2 sources) Thiazide Diuretic, Angiotensin 2 Receptor Pramod Start: 7 VALSARTAN-HYDROCHL OROTHIAZIDE 160-12.5 MG TABS VALSARTAN-HYDROCHL OROTHIAZIDE 02220928119 Tamela Bedoya 3 ml insulin degludec 100 unt/ml pen injector (2 sources) Insulin Analog Start: 7 TRESIBA FLEXTOUCH 100 UNIT/ML SOPN INSULIN DEGLUDEC 12647945856 Tamela Forde Elke magnesium oxide 400 mg oral tablet (7 sources) Start: 7 MAGNESIUM OXIDE 400 (240 Mg) MG TABS MAGNESIUM OXIDE [id number] Tamela Bedoya Problems Active Problems Problem Classification Problem Date Documented Da te Episodic/Chronic Spondylosis; intervertebral disc disorders; other back problems (2 sources) Cervical radiculopathy; Translations: [Radiculopathy, cervical region] Onset: 01-19-2017 01-19-2017 Chronic Unclassified (3 sources) No current problems or disability 01-20-2017 Past or Other Problems Problem Classification Problem Date Documented Da te Episodic/Chronic Spondylosis; intervertebral disc disorders; other back problems (2 sources) Lumbar radiculopathy; Translations: [Radiculopathy, lumbar region] Onset: 01-19-2017 01-19-2017 Episodic Results Test Name Value Interpretation Reference Range Facil ity Vital Signs Date Time Vital Sign Value Performing Clinician Heike garrett 01-19-2017 14:47-0400 BMI (Body Mass Index) 32.07 kg/m2 [facility] Work Phone: 01-19-2017 14:47-0400 Height 180.34 cm [facility] Work Phone: 01-19-2017 14:47-0400 Weight 104.33 kg [facility] Work Phone: Plan of Treatment Date Care Activity Detail Author Start: 01-20-2017 End: 01-20-2017 Physical Therapy General Physical Therapy General Rehab [facility], [address] [place] [address], [id number] [facility] Work Phone: Start: 01-19-2017 End: 01-19-2017 Appointment Appointment [facility] Work Phone: Start: 01-19-2017 End: 01-19-2017 Mri neck spine w/o & w/dye MRI Cervical Spine with and without Contrast [facility] Work Phone: Start: 01-19-2017 End: 01-19-2017 X-ray exam l-s spine bending X-Ray, Spine, Lumbar, complete with bending views [facility] Work Phone: Start: 01-19-2017 End: 01-19-2017 X-ray exam of neck spine X-Ray, Spine, Cervical AP, Lat and Obliques 4-5 views [facility] Work Phone: Additional Source Comments FOR RECORDS PERTAINING TO PATIENTS WHO ARE OR HAVE BEEN ENROLLED IN A CHEMICAL DEPENDENCY/SUBSTANCEABUSE PROGRAM, SOME INFORMATION MAY BE OMITTED. This clinical summary was aggregated from multiple sources. Caution should be exercised in using it in the provision of clinical care. This summary normalizes information from multiple sources, and as a consequence, information in this document may materially change the coding, format and clinical context of patient data. In addition, data may be omitted in some cases. CLINICAL DECISIONS SHOULD BE BASED ON THE PRIMARY CLINICAL RECORDS. [employer] [facility]. provides no warranty or guarantee of the accuracy or completeness of information in this document.
== END | disposition home or self-care (01) ==
LOC: MFPLAB 14:53
PROVIDERS: PCP Family Medicine; Visit Provider Family Medicine
DX: E11.22 Type 2 diabetes mellitus with diabetic chronic kidney disease (principal); E11.319 Type 2 diabetes mellitus with unspecified diabetic retinopathy without macular edema; D75.1 Secondary polycythemia; M48.10 Ankylosing hyperostosis [Forestier], site unspecified
CPT/HCPCS: 36415; 80053; 82306; 83036; 83690; 85027

== ENCOUNTER → 2023-10-04 | Outpatient (CLI) | payer OTHER, SELFPAY ==
[2023-10-04 10:30] LABS: Cholesterol 124 mg/dL (200); High Density Lipoprotein 43 mg/dL; Triglycerides 199 mg/dL; Very Low Density Lipoprotein 40 mg/dL (5-40)
== END | disposition home or self-care (01) ==
LOC: LAB 09:15
PROVIDERS: PCP Family Medicine; Referring Provider Nurse Practitioner Family; Visit Provider Nurse Practitioner Family
DX: E11.9 Type 2 diabetes mellitus without complications (principal); E78.00 Pure hypercholesterolemia, unspecified; E66.9 Obesity, unspecified
CPT/HCPCS: 36415; 80061

== ENCOUNTER → 2024-09-25 | Outpatient (CLI) | payer OTHER, SELFPAY ==
[2024-09-25 18:32] LABS: ALB/GLOB Ratio 1.2 RATIO (0.9-2.4); AST(SGOT) 45 U/L (<=37); Alanine Aminotransfer ALT/SGPT 44 U/L (<=46); Albumin, Serum 4.4 g/dL (3.5-5.0); Alkaline Phosphatase 72 U/L (40-129); Anion Gap 12 (5-15); BUN 13 mg/dL (4-19); BUN/Creat Ratio 14.5 RATIO (10-20); Calcium,Total 9.7 mg/dL (7.6-11.0); Carbon Dioxide 22.9 mmol/L (21.0-32.0); Chloride 105 mmol/L (98-108); Cholesterol 157 mg/dL (<=200); Creatinine, Serum 0.89 mg/dL (0.70-1.20); EST Glomerular Filtration Rate 103 (>60); Globulin 3.5 g/dL (2.2-4.2); Glucose 131 mg/dL (70-99); High Density Lipoprotein 47 mg/dL; Low Density Lipoprotein Calc. 59 mg/dL; Potassium 4.7 mmol/L (3.3-5.1); Protein, Total 7.9 g/dL (5.9-8.4); Sodium Level 139 mmol/L (133-145); Total Bilirubin 0.48 mg/dL (0.00-1.30); Triglycerides 257 mg/dL; Very Low Density Lipoprotein 51 mg/dL (5-40); cholesterol:hdl ratio screen 3.38
[2024-09-25 19:35] LABS: Microalbumin,Random Urine < 12.0 mg/L (NO RANGE EST.); Microalbumin:Creatinine Ratio UNABLE TO CALCULATE mg/g CRE
== END | disposition home or self-care (01) ==
LOC: MFPLAB 14:38
PROVIDERS: PCP Family Medicine; Referring Provider Family Medicine; Visit Provider Family Medicine
DX: E78.00 Pure hypercholesterolemia, unspecified (principal); E11.8 Type 2 diabetes mellitus with unspecified complications
CPT/HCPCS: 36415; 80053; 80061; 82043; 82570

== ENCOUNTER → 2025-02-23 | Outpatient (CLI) | payer OTHER, SELFPAY ==
--- NOTE | 2025-02-23 12:40 | RAD_ITS ---
PROCEDURE: LUMBAR SPINE 2 OR 3 VIEWS 02/23/2025 REASON FOR EXAM: NEW BACK PAIN AND FELING OF INSTABILITY ABO VE LEVEL OF FUSION TECHNIQUE: LUMBAR SPINE 2 OR 3 VIEWS COMPARISON: Prior study dated March 30, 2022. FINDINGS: The patient is status post laminectomy and fusion at the L4-L5 level with screw and constantino fixation device. There is a marked degree of disc space narrowing at the L4-L5 and L5-S1 levels. Minimal anterior listhesis of L4 on L5. Facet joint osteoarthritis. A right-sided bone stimulator device is seen. RAD/Lumbar Spine 2 or 3 Views IMPRESSION: Status post laminectomy and fusion at the L4-L5 level with screw and constantino fixati on device. Anterior listhesis of L4 on L5. Marked degree of disc space narrowing at the L4-L5 and L5-S1 levels. Reading Location: [facility]
== END | disposition home or self-care (01) ==
PROVIDERS: PCP Family Medicine; Referring Provider Family Medicine; Visit Provider Family Medicine
DX: M47.817 Spondylosis without myelopathy or radiculopathy, lumbosacral region (principal)
CPT/HCPCS: 72100

== ENCOUNTER → 2025-04-11 | Outpatient (CLI) | payer OTHER, SELFPAY ==
[2025-04-11 12:55] LABS: Hematocrit 45.2 % (40-54); Hemoglobin 15.8 g/dL (13.0-16.5); Immature Granulocytes Count 0.050 X10^3/uL (0.0-0.0); Mean Corp Hgb Conc 35.0 g/dL (32-36); Mean Corpuscular Volume 92.2 fL (80-94); Mean Platelet Vol. 11.1 fl (6.2-12.0); NRBC Flagged by Analyzer 0 % (0-5); Platelet Count 215 K/mm3 (150-450); RBC Distribution Width CV 12.7 % (11.6-14.6); RBC Distribution Width SD 42.7 fl (35.1-43.9); Red Blood Count 4.90 M/mm3 (4.6-6.2); White Blood Count 7.2 K/mm3 (4.4-11.0)
[2025-04-11 13:10] LABS: Microalbumin,Random Urine 124.0 mg/L (<20 mg/L)
[2025-04-11 13:14] LABS: AST(SGOT) 47 U/L (<=37); Alanine Aminotransfer ALT/SGPT 40 U/L (<=46); Albumin, Serum 4.0 g/dL (3.5-5.0); Alkaline Phosphatase 66 U/L (40-129); Anion Gap 13 (5-15); BUN 10 mg/dL (4-19); BUN/Creat Ratio 12.3 RATIO (10-20); Calcium,Total 9.5 mg/dL (7.6-11.0); Carbon Dioxide 21.6 mmol/L (21.0-32.0); Chloride 101 mmol/L (98-108); Globulin 3.2 g/dL (2.2-4.2); Glucose 96 mg/dL (70-99); Potassium 4.0 mmol/L (3.3-5.1)
[2025-04-13 17:12] LABS: Creatinine, Urine (random) 159.00 mg/dL (39.00-259.00)
== END | disposition home or self-care (01) ==
LOC: MFPLAB 10:25
PROVIDERS: PCP Family Medicine; Visit Provider Family Medicine
DX: M48.10 Ankylosing hyperostosis [Forestier], site unspecified (principal)
CPT/HCPCS: 36415; 80053; 82043; 82570; 85025

== ENCOUNTER → 2025-04-19 | Outpatient (CLI) | payer OTHER, SELFPAY ==
--- NOTE | 2025-04-19 11:31 | CT_ITS ---
EXAM: SPINE LUMBAR WITH CONTRAST CLINICAL HISTORY: 55 y/o M with S/P LUMBAR FUSION Evaluate for spinal stenosis. COMPARISON: Radiographs of the lumbar spine dated 02/23/2025. TECHNIQUE: Post lumbar myelographic injection, a Lumbar spine CT without intravenous contrast was obtained. Axial sagittal and coronal reconstructions were performed. DLP: 1672.44 mGy per cm FINDINGS: Alignment of the lumbar spine is maintained. The patient is status post lumbar fusion at L4-5. Pedicular screws are noted bilaterally with rods in place. No hardware failure. Very mild anterolisthesis of L4 on L5 noted. There is slight left sacralization of L5 which appears solid. What is seen of the SI joints appear partially fused. The disc space at L4-5 appears fused. There is very mild anterolisthesis of L4 on L5. Laminectomy changes are noted at this level. There is no central stenosis. Neurostimulator leads prashant noted through the L1-L2 posterior disc space. The tip of the leads is not visualized. The cord is normal in caliber throughout. The cord contour is unremarkable. There is no focal expansion. Nerve roots appear unremarkable. No tethering. No severe central stenosis. T12/L1: Disc space appears normal. There is no protrusion. No central or foraminal stenosis. L1/2: Disc space appears normal. There is no protrusion. No central or foraminal stenosis. L2/3: Disc space appears normal. There is no protrusion. No central or foraminal stenosis. L3/4: No disc bulge. Severe facet arthropathy. No central or foraminal stenosis. L4/5: The disc appears fused. There is bilateral foraminal encroachment. Post laminectomy changes identified. No stenosis.. L5/S1: No disc protrusion. Moderate facet arthropathy. No central or foraminal stenosis.. CT/Spine Lumbar WITH Contrast IMPRESSION: Postsurgical changes at L4-5 related to fusion with laminectomy. Minimal anter olisthesis with bilateral foraminal encroachment at this level. No central stenosis. Stable appearance of nerve roots and distal spinal cord. Mild multilevel facet arthropathy. 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 Reading Location: [id number]
--- NOTE | 2025-04-19 11:31 | RAD_ITS ---
PROCEDURE: LUMBAR MYELOGRAM 04/19/2025 REASON FOR EXAM: S/P LUMBAR FUSION TECHNIQUE: Procedure Code: RADMY Modality: DX Procedure: LUMBAR MYELOGRAM Fluoroscopy time: 34 seconds. Dose: 65.6 mGy. COMPARISON: Lumbar spine series of 02/23/2025. FINDINGS: Procedure: Following informed consent, an using standard sterile technique, a fluoroscopic guided lumbar myelogram was performed. 2% lidocaine local anesthesia was followed by placement of a 22 gauge 5 in spinal needle at the L2 level, with the patient in a mild posterior oblique position. Following visualization of cerebral spinal fluid, approximately 15 mL of Isovue 200 M was then successfully injected, confirmed with imaging. No complication was encountered, in the patient less than the fluoroscopy suite for CT following. RAD/Lumbar Myelogram IMPRESSION: Successful lumbar myelographic injection. CT to follow. Reading Location: [place] [id number]
[2025-04-19 11:41] VITALS: BP 146/94; PULSE 91; RESP 18; O2SAT 98; BMI 40.1
[2025-04-19] MEDS: Lidocaine 2% (5ml sdv) 5 ML VIAL.MPF INFILT (12:05)
[2025-04-19 12:15] VITALS: BP 153/86; PULSE 93; RESP 18; O2SAT 98
[2025-04-19 12:30] VITALS: BP 127/74; PULSE 90; RESP 18; O2SAT 93
[2025-04-19 13:15] VITALS: BP 153/86; BP 157/74; PULSE 90; RESP 18; TEMP 36.6; O2SAT 97
== END | disposition home or self-care (01) ==
LOC: RAD 11:28
PROVIDERS: PCP Family Medicine; Referring Provider Orthopaedic Surgery Orthopaedic Surgery of the Spine; Visit Provider Orthopaedic Surgery Orthopaedic Surgery of the Spine
DX: Z98.1 Arthrodesis status (principal)
CPT/HCPCS: 62304; 72132; Q9965